=== PATIENT | female | born 1950 | race Two or more races ===

== ENCOUNTER 2018-06-20 14:29 | Emergency (ER) | payer OTHER ==
[2018-06-20] MEDS ORDERED: LIDOCAINE 5% TOPICAL PATCH TP ONE (14:40)
[2018-06-20] MEDS ORDERED: KETOROLAC TROMETHAMINE 30 MG/1 ML VIAL IM ONE (14:40)
--- NOTE | 2018-06-20 14:46 | PDOC ---
History of Present Illness - General Stated Complaint: PAIN Time Seen by Provider: 06/20/18 14:39 History Source: Patient, Family - History of Present Illness Occurred: reports: yesterday Pain Location: reports: back Past History - Past Medical History Allergies/Adverse Reactions: Allergies Allergy/AdvReac Type Severity Reaction Status Date / Time No Known Allergies Allergy Verified 06/20/18 14:45 Home Medications: Ambulatory Orders Lidocaine 5% Patch [Lidoderm Patch -] 1 patch TP DAILY #7 patch 06/20/18 Lidocaine 5% Patch [Lidoderm Patch -] 1 patch TP DAILY #7 patch 06/20/18 Naproxen 500 mg PO BID #20 tablet 06/20/18 Nitrofurantoin Monohyd/M-Cryst [Macrobid -] 100 mg PO BID #14 capsule 06/20/18 Review of Systems - Review of Systems Constitutional: No: Chills, Fever ABD/GI: No: Nausea, Vomiting, Abdominal cramping : Yes: Dysuria. No: Flank Pain, Hematuria Musculoskeletal: Yes: Back Pain Neurological: No: Numbness, Tingling, Weakness *Physical Exam - Physical Exam General Appearance: Yes: Appropriately Dressed. No: Apparent Distress HEENT: positive: Normal Voice Neck: positive: Supple Respiratory/Chest: negative: Respiratory Distress Gastrointestinal/Abdominal: positive: Normal Bowel Sounds, Soft. negative: Tender, Pulsatile Mass, Distended, Guarding Musculoskeletal: positive: Vertebral Tenderness (to lower back diffusely). negative: CVA Tenderness Integumentary: positive: Dry, Warm Neurologic: positive: Fully Oriented, Alert, Normal Mood/Affect ED Treatment Course - LABORATORY CBC & Chemistry Diagram: 06/20/18 14:44 06/20/18 14:44 - RADIOLOGY Radiology Studies Ordered: Category Date Time Status SPINE-LUMBAR SACRAL [RAD] Stat Radiology 06/20/18 14:40 Ordered Medical Decision Making - Medical Decision Making 06/20/18 14:41 67-year-old female, history of HTN, HLD, NIDDM, thyroid issues, gastritis, here with lower back pain. Patient reporting diffuse lower back pain since yesterday , unable to describe intermittent and worse with certain movements. No recent trauma or other obvious inciting factors. Has not taken any pain meds. No similar pain in the past. Patient was diagnosed and treated for UTI over a week ago, completed antibiotics (does not remember name or meds). Patient states she might still have some burning upon urination. No hematuria, nausea, vomiting, fever or chills. No history of kidney stones. See exam Lower back pain Possible MSK, r/o pyelo No trauma No abd pain, pulsaltile mass No h/o renal stone Tx for UTI > 1 week ago (does not remember meds or know cx results) Stable in NAD w/ reproducible ttp to lower bask diffusely, exam otherwise unremarkable -pain control -labs/ua -XR r/o compression fx -reassess 06/20/18 15:18 Labs unremarkable with negative x-ray and renal ultrasound. US abd was not necessary but family insistent. 1 gallstone seen on US, otherwise unremarkable. Patient reports improvement with pain meds. Will dc with pain control. Will also prescribe a course of antibiotics for possible UTI. Urine culture sent. Patient to follow-up with PMD *DC/Admit/Observation/Transfer Diagnosis at time of Disposition: Back pain Qualifiers: Back pain location: low back pain Chronicity: acute Back pain laterality: bilateral Sciatica presence: without sciatica Qualified Code(s): M54.5 - Low back pain - Discharge Dispostion Disposition: HOME Condition at time of disposition: Improved - Prescriptions Prescriptions: Lidocaine 5% Patch [Lidoderm Patch -] 1 patch TP DAILY #7 patch Naproxen 500 mg PO BID #20 tablet - Referrals Referrals: Kaitlin Pulido [Primary Care Provider] - - Patient Instructions Printed Discharge Instructions: DI for Low Back Pain Additional Instructions: Your lower back pain is most likely muscular. Your labs, XR and kidney ultrasound were negative. You have 1 small gallstone which is not likely the cause of your pain Take pain medications as prescribed. You were also prescribed a course of antibiotics for possible urinary tract infection. If symptoms worsen, return to ED. Otherwise follow-up with your PMD - Post Discharge Activity
[2018-06-20 14:54] LABS: BASO % 1.1 % (0-2.0); EOS % 2.2 % (0-4.5); HEMATOCRIT 40.8 % (32.4-45.2); HEMOGLOBIN 13.5 GM/dL (10.7-15.3); LYMPH % 40.4 % (8-40); MCH 29.2 pg (25.7-33.7); MCHC 33.1 g/dl (32.0-36.0); MEAN CELL VOLUME 88.2 fl (80-96); MEAN PLT VOLUME 9.8 fl (7.5-11.1); MONO % 6.8 % (3.8-10.2); NEUT % 49.5 % (42.8-82.8); PLATELET COUNT 158 K/MM3 (134-434); RBC 4.63 M/mm3 (3.60-5.2); RDW 13.2 % (11.6-15.6); WHITE BLOOD COUNT 6.1 K/mm3 (4.0-10.0)
[2018-06-20 14:55] LABS: URINE APPEARANCE CLEAR; URINE BILIRUBIN NEGATIVE (<2.0 mg/dL); URINE COLOR LTYELLOW; URINE GLUCOSE (UA) 2+ (NEGATIVE); URINE KETONE NEGATIVE (NEGATIVE); URINE LEUK ESTERASE 1+ (NEGATIVE); URINE NITRITE NEGATIVE (NEGATIVE); URINE PROTEIN NEGATIVE (NEGATIVE); URINE UROBILINOGEN NEGATIVE mg/dL (0.2-1.0)
[2018-06-20 14:57] VITALS: BP 154/78; PULSE 78; TEMP 98; BMI 34.7
[2018-06-20 14:59] LABS: EPI CELLS RARE /HPF (FEW)
[2018-06-20 15:12] LABS: ALBUMIN 4.1 g/dl (3.4-5.0); ALK PHOS 80 U/L (45-117); ANION GAP 8 MMOL/L (8-16); BILIRUBIN,TOTAL 0.4 mg/dL (0.2-1); BLOOD UREA NITROGEN 16 mg/dL (7-18); CALCIUM 8.8 mg/dL (8.5-10.1); CHLORIDE 102 mmol/L (98-107); CO2 28 mmol/L (21-32); CREATININE 0.7 mg/dL (0.55-1.3); GLUCOSE,RANDOM 248 mg/dL (74-106); SGOT/AST 26 U/L (15-37); SGPT/ALT 39 U/L (13-61); SODIUM 138 mmol/L (136-145); TOT PROT 8.2 g/dl (6.4-8.2)
[2018-06-20] MEDS ORDERED: LIDOCAINE PATCH REMOVAL MC SCH (22:00)
== END 2018-06-20 16:02 | disposition home or self-care (01) ==
LOC: JERFT 14:29 → JER 14:29 → JERFT 16:02
PROC: 3E0233Z Introduction of Anti-inflammatory into Muscle, Percutaneous Approach (ICD-10-PCS; principal; 2018-06-20)
DX: M54.5 Low back pain (principal); Z87.440 Personal history of urinary (tract) infections; I10 Essential (primary) hypertension; E78.00 Pure hypercholesterolemia, unspecified; E11.9 Type 2 diabetes mellitus without complications; Z79.84 Long term (current) use of oral hypoglycemic drugs
CPT/HCPCS: 36415; 72100-TC-FY; 76705-TC; 76775-TC; 80053; 81003; 81015; 85025; 87086; 96372; 99281-25